=== PATIENT | female | born 1990 | race Caucasian/White ===

== ENCOUNTER 2017-10-26 21:55 | Emergency (ER) | payer OTHER ==
[2017-10-26 23:09] LABS: Absolute Lymphocytes (CBC) 4.2 K/uL (0.7-4.9); Absolute Monocytes 1.1 K/uL (0.1-1.3); Absolute Neutrophil 8.5 K/uL (1.8-8.0); Basophils % 1.1 % (0-1.3); Eosinophils % 2.1 % (0-4.4); Hematocrit 37.8 % (36.0-45.0); Lymphocytes % 29.2 % (15.3-44.8); MCH 28.3 pg (27.0-35.0); MCV 85.8 fL (80-100); Monocytes % 7.8 % (3.3-12.3)
[2017-10-26 23:12] LABS: Protime INR 0.96
[2017-10-26 23:17] LABS: Bicarbonate 25 mEq/L (21-31); Glucose Level 124 mg/dL (65-120); Potassium 3.9 mEq/L (3.6-5.0); Sodium Level 138 mEq/L (135-145)
[2017-10-26 23:23] LABS: ALT/SGPT 49 IU/L (10-60); AST/SGOT 27 IU/L (10-42); Albumin 3.3 g/dL (3.2-5.5); Alkaline Phosphatase 88 IU/L (42-121); BUN Blood Urea Nitrogen 9 mg/dL (6-20); Bilirubin Direct < 0.1 mg/dL (0-0.2); Bilirubin Total < 0.2 mg/dL (0.3-1.2); Protein, Total 6.6 g/dL (6.0-8.3)
[2017-10-26 23:25] LABS: Alcohol Serum/Plasma < 10 mg/dl; Salicylates Level < 4.0 mg/dl (<30)
[2017-10-26 23:35] LABS: Barbiturates NEGATIVE; Benzodiazepines NEGATIVE; Cocaine POSITIVE; METHAMPHETAM NEGATIVE; Opiates NEGATIVE; Phencyclidine NEGATIVE; THC Cannibis NEGATIVE
[2017-10-26 23:52] LABS: Urine Blood NEGATIVE (NEG); Urine Glucose NEGATIVE (NEG); Urine Protein NEGATIVE (NEG); Urine Specific Gravity >1.030 (1.005-1.030)
--- NOTE | 2017-10-27 01:47 | ER ---
Nurse's Notes [facility] Name: Kaylie Hernadez Age: 26 yrs Sex: Female : 1990 Arrival Date: 10/26/2017 Time: 21:58 Bed 15 Private MD: Diagnosis: Major depressive disorder, recurrent Presentation: 10/26 22:08 Presenting complaint: Patient states: she woke this morning with suicidal thoughts and aa1 thoughts of harming her boyfriend. States, "He was just making me so mad because he doesn't understand mental illness." Pt reports that she has not been able to fill her psych meds bc her medicaid wasn't covering them so she wants to go to an inpatient facility so she can get some help. Pt states that she does not have a plan on harming her boyfriend but if she harmed herself she would stab herself in the neck with a knife. States she has also been having a lot of acid reflux today. Transition of care: patient was not received from another setting of care. Onset of symptoms was October 26, 2017. Care prior to arrival: IV initiated. 20 GA, in the right antecubital area. 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 - Social history:: Smoking status: Patient uses tobacco products, smokes one pack cigarettes per day. Screenin:25 Abuse screen: Denies threats or abuse. Denies injuries from another. Nutritional aa1 screening: No deficits noted. Tuberculosis screening: No symptoms or risk factors identified. Fall Risk None identified. Assessment: 22:25 General: Appears in no apparent distress. comfortable, obese, unkempt, Behavior is aa1 calm, cooperative, appropriate for age. Pain: Complains of pain in epigastric area Pain currently is 10 out of 10 on a pain scale. Quality of pain is described as burning, Pain began this morning Is continuous. Neuro: Level of Consciousness is awake, alert, obeys commands, Oriented to person, place, time, situation, Speech is normal. Respiratory: Airway is patent Respiratory effort is even, unlabored, Respiratory pattern is regular, symmetrical. GI: Reports epigastric pain, indigestion. : No signs and/or symptoms were reported regarding the genitourinary system. EENT: No signs and/or symptoms were reported regarding the EENT system. Derm: Skin is intact, is healthy with good turgor, Skin is pink, warm \\T\\ dry. Musculoskeletal: Circulation, motion, and sensation intact. Capillary refill < 3 seconds. 23:30 Reassessment: Patient appears in no apparent distress at this time. Patient and/or aa1 family updated on plan of care and expected duration. Pain level reassessed. Patient is alert, oriented x 3, equal unlabored respirations, skin warm/dry/pink. Awaiting lab results. Requesting food and drink. 10/27 00:30 Reassessment: Patient appears in no apparent distress at this time. Patient and/or aa1 family updated on plan of care and expected duration. Pain level reassessed. Patient is alert, oriented x 3, equal unlabored respirations, skin warm/dry/pink. Awaiting psych transfer. 01:31 Reassessment: Patient appears in no apparent distress at this time. Patient and/or aa1 family updated on plan of care and expected duration. Pain level reassessed. Patient is alert, oriented x 3, equal unlabored respirations, skin warm/dry/pink. Nurse to nurse given to Lilli g[facility]. 02:02 Reassessment: Nurse to nurse given to [facility]. aa1 02:40 Reassessment: Patient appears in no apparent distress at this time. Patient and/or aa1 family updated on plan of care and expected duration. Pain level reassessed. Patient is alert, oriented x 3, equal unlabored respirations, skin warm/dry/pink. Report given to Ailin at [facility]. 02:49 Reassessment: Report given to nurse at [facility]. to contact Dr. Sheth at aa1 [phone]. 03:35 Reassessment: Patient appears in no apparent distress at this time. Patient is alert, aa1 oriented x 3, equal unlabored respirations, skin warm/dry/pink. EMS present for pt transfer to [facility]. Psych: 10/26 22:00 Subjective: Patient's mood is calm Delusions are denied, Hallucinations are denied aa1 Having thoughts of suicide. Plan for suicide is stab herself in the neck with a knife. Objective: Patient is cooperative, Speech is normal, Affect is appropriate. Interventions: Removed personal items and placed in bag. Patient placed in hospital gown. Searched person for dangerous items. Urine collected and sent for urine drug test. Belonging list filled out. Suicide Risk Assessment: Sad Person Scale: Sex of patient: Female: Score 0 points. Age of patient: Score 1 point if patient 15-34. Depression: Score 0 point if signs of depression are not present. Previous Attempt: Score 0 point if patient has not previously attempted suicide. Substance Abuse: Score 0 point if patient does not abuse alcohol or drugs. Rational Thinking: Score 0 point if patient has rational thinking. Social Support: Score 0 if social support is present/available. Organized Plan: Score 1 point if patient had a plan in place. Relationship: Score 0 point if patient has a spouse or domestic partner. Chronic Sickness: Score 0 point if patient does not have a chronic illness, debilitating, or severe disorder. TOTAL POINTS: If total points are 0-2, proposed clinical action is to send home with follow-up. Pt denies substance abuse. Commitment: Patient will be a voluntary commitment. 22:15 Safety Checks: Personal items have been removed. Door is open. No visitors are present aa1 at this time. Sitter at bedside. 22:30 Safety Checks: Personal items have been removed. Door is open. No visitors are present aa1 at this time. Sitter at bedside. 22:45 Safety Checks: Personal items have been removed. Door is open. No visitors are present aa1 at this time. Sitter at bedside. 23:00 Safety Checks: Personal items have been removed. Door is open. No visitors are present aa1 at this time. Sitter at bedside. 23:15 Safety Checks: Personal items have been removed. Door is open. No visitors are present aa1 at this time. Sitter at bedside. 23:30 Safety Checks: Personal items have been removed. Door is open. No visitors are present aa1 at this time. Sitter at bedside. 23:45 Safety Checks: Personal items have been removed. Door is open. No visitors are present aa1 at this time. Sitter at bedside. 10/27 00:00 Safety Checks: Personal items have been removed. Door is open. No visitors are present aa1 at this time. Sitter at bedside. 00:15 Safety Checks: Personal items have been removed. Door is open. No visitors are present aa1 at this time. Sitter at bedside. 00:30 Safety Checks: Personal items have been removed. Door is open. No visitors are present aa1 at this time. Sitter at bedside. 00:45 Safety Checks: Personal items have been removed. Door is open. No visitors are present aa1 at this time. Sitter at bedside. 01:00 Safety Checks: Personal items have been removed. Door is open. No visitors are present aa1 at this time. Sitter at bedside. 01:15 Safety Checks: Personal items have been removed. Door is open. No visitors are present aa1 at this time. Sitter at bedside. 01:30 Safety Checks: Personal items have been removed. Door is open. No visitors are present aa1 at this time. Sitter at bedside. 01:45 Safety Checks: Personal items have been removed. Door is open. No visitors are present aa1 at this time. Sitter at bedside. 02:00 Safety Checks: Personal items have been removed. Door is open. No visitors are present aa1 at this time. Sitter at bedside. 02:15 Safety Checks: Personal items have been removed. Door is open. No visitors are present aa1 at this time. Sitter at bedside. 02:30 Safety Checks: Personal items have been removed. Door is open. No visitors are present aa1 at this time. Sitter at bedside. 02:45 Safety Checks: Personal items have been removed. Door is open. No visitors are present aa1 at this time. Sitter at bedside. 03:00 Safety Checks: Personal items have been removed. Door is open. No visitors are present aa1 at this time. Sitter at bedside. 03:15 Safety Checks: Personal items have been removed. Door is open. No visitors are present aa1 at this time. Sitter at bedside. Vital Signs: 10/26 22:23 BP 158 / 104; Pulse 91; Resp 18; Temp 98.1; Pulse Ox 100% on R/A; Weight 127.01 kg; aa1 Height 5 ft. 7 in. (170.18 cm); Pain 10/10; 23:25 BP 108 / 63; Pulse 87; Resp 16; Pulse Ox 100% on R/A; jl8 10/27 00:42 BP 112 / 76; Pulse 84; Resp 16; Pulse Ox 99% ; jl8 02:12 BP 134 / 51; Pulse 74; Resp 16; Pulse Ox 96% ; jl8 10/26 22:23 Body Mass Index 43.85 (127.01 kg, 170.18 cm) aa1 ED Course: 10/26 21:58 Patient arrived in ED. em1 22:07 Shayy Myers RN is Primary Nurse. aa1 22:11 Triage completed. aa1 22:14 Allan Allen MD is Attending Physician. tw4 22:23 Arm band placed on right wrist. Patient placed in an exam room, on a stretcher. aa1 22:25 Patient has correct armband on for positive identification. Placed in gown. Bed in low aa1 position. Side rails up X2. Patient is placed in psych hold. 22:25 Maintain EMS IV. Dressing intact. Site clean \\T\\ dry. Gauge \\T\\ site: 20g RAC. aa 1 23:15 Safety checks: Items removed: yes. Door open/sign placed on door: yes. Family/friend jl8 present: no. 10/27 00:02 Safety checks: Items removed: yes. Door open/sign placed on door: yes. Family/friend jl8 present: no. 00:34 Safety checks: Items removed: yes. Door open/sign placed on door: yes. Family/friend jl8 present: no. 01:02 Safety checks: Items removed: yes. Door open/sign placed on door: yes. Family/friend jl8 present: no. 01:37 Safety checks: Items removed: yes. Door open/sign placed on door: yes. Family/friend jl8 present: no. 02:01 Safety checks: Items removed: yes. Door open/sign placed on door: yes. Family/friend jl8 present: no. 02:31 Safety checks: Items removed: yes. Door open/sign placed on door: yes. Family/friend jl8 present: no. 03:04 Safety checks: Items removed: yes. Door open/sign placed on door: yes. Family/friend jl8 present: no. 03:30 Safety checks: Items removed: yes. Door open/sign placed on door: yes. Family/friend jl8 present: no. 03:35 No provider procedures requiring assistance completed. IV discontinued, intact, aa1 bleeding controlled, No redness/swelling at site. Pressure dressing applied. Administered Medications: No medications were administered Outcome: 01:46 ER care complete, transfer ordered by . tw4 03:35 Transferred by ground EMS Note: [facility] aa1 03:35 Condition: good 03:35 Instructed on the need for transfer, Demonstrated understanding of instructions. 03:37 Patient left the ED. aa1 Signatures: Shayy Myers RN RN aa1 Luke Garsia em1 Aure Schwab cc Lorraine Singh vo1 Allan Allen MD MD tw4 Valerie Nichols jl8 Corrections: (The following items were deleted from the chart) 10/26 23:25 23:17 Safety checks: Items removed: yes. Door open/sign placed on door: yes. jl8 Family/friend present: no. cc 10/27 02:18 02:16 Safety checks: Items removed: vo1 vo1
--- NOTE | 2017-10-27 01:47 | EDPHYS ---
Physician Documentation [facility] Name: Kaylie Hernadez Age: 26 yrs Sex: Female : 1990 Arrival Date: 10/26/2017 Time: 21:58 Bed 15 Private MD: ED Physician Allan Allen HPI: 10/27 00:57 This 26 yrs old Female presents to ER via EMS with complaints of Suicidal tw4 Ideation. 00:57 The patient presents to the emergency department with depression, homicidal ideation, tw4 the patient has harmed or wants to harm anyone, Plan? suicide ideation, but the patient has no formulated plan. Onset: The symptoms/episode began/occurred today. Past psychiatric history: Prior diagnosis: depression. Associated signs and symptoms: The patient has no apparent associated signs or symptoms. Severity of symptoms: At their worst the symptoms were moderate in the emergency department the symptoms are unchanged. The patient has not experienced similar symptoms in the past. 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 - Social history:: Smoking status: Patient uses tobacco products, smokes one pack cigarettes per day. ROS: 10/27 00:57 Constitutional: Negative for fever, chills, and weight loss, Eyes: Negative for injury, tw4 pain, redness, and discharge, Cardiovascular: Negative for chest pain, palpitations, and edema, Respiratory: Negative for shortness of breath, cough, wheezing, and pleuritic chest pain, Abdomen/GI: Negative for abdominal pain, nausea, vomiting, diarrhea, and constipation, MS/Extremity: Negative for injury and deformity, Skin: Negative for injury, rash, and discoloration. Psych: Positive for suicide gesture, suicidal ideation. Exam: 00:57 Constitutional: This is a well developed, well nourished patient who is awake, alert, tw4 and in no acute distress. Head/Face: Normocephalic, atraumatic. Chest/axilla: Normal chest wall appearance and motion. Nontender with no deformity. No lesions are appreciated. Cardiovascular: Regular rate and rhythm with a normal S1 and S2. No gallops, murmurs, or rubs. Normal PMI, no JVD. No pulse deficits. Respiratory: Lungs have equal breath sounds bilaterally, clear to auscultation and percussion. No rales, rhonchi or wheezes noted. No increased work of breathing, no retractions or nasal flaring. Abdomen/GI: Soft, non-tender, with normal bowel sounds. No distension or tympany. No guarding or rebound. No evidence of tenderness throughout. MS/ Extremity: Pulses equal, no cyanosis. Neurovascular intact. Full, normal range of motion. Neuro: Awake and alert, GCS 15, oriented to person, place, time, and situation. Cranial nerves II-XII grossly intact. Motor strength 5/5 in all extremities. Sensory grossly intact. Cerebellar exam normal. Normal gait. 00:57 Psych: Behavior/mood is cooperative, Affect is animated, Oriented to person, place, time, Patient having thoughts of suicide. Denies suicidal plan. Patient having thoughts of homicide. Denies plan. Delusions/hallucinations are not present. Vital Signs: 10/26 22:23 BP 158 / 104; Pulse 91; Resp 18; Temp 98.1; Pulse Ox 100% on R/A; Weight 127.01 kg; aa1 Height 5 ft. 7 in. (170.18 cm); Pain 10/10; 23:25 BP 108 / 63; Pulse 87; Resp 16; Pulse Ox 100% on R/A; jl8 10/27 00:42 BP 112 / 76; Pulse 84; Resp 16; Pulse Ox 99% ; jl8 02:12 BP 134 / 51; Pulse 74; Resp 16; Pulse Ox 96% ; jl8 10/26 22:23 Body Mass Index 43.85 (127.01 kg, 170.18 cm) aa1 MDM: 10/26 22:14 Patient medically screened. tw4 10/27 00:57 Differential diagnosis: depression. Data reviewed: vital signs, nurses notes. tw4 Counseling: I had a detailed discussion with the patient and/or guardian regarding: the historical points, exam findings, and any diagnostic results supporting the discharge/admit diagnosis. ED course: pt evaluated by psych mobile assessment. Since pt has a plan will admit to observation. . 10/26 22:38 Order name: Acetaminophen 10/26 22:38 Order name: Basic Metabolic Panel 10/26 22:38 Order name: CBC with Diff 10/26 22:38 Order name: ETOH Level 10/26 22:38 Order name: Hepatic Function 10/26 22:38 Order name: PT-INR 4 10/26 22:38 Order name: Urine Test (obtain specimen); Complete Time: 23:21 4 10/26 22:38 Order name: Ptt, Activated 4 10/26 22:38 Order name: Salicylate 10/26 22:38 Order name: Urine Drug Screen 10/26 22:38 Order name: EKG; Complete Time: 22:39 4 10/26 22:38 Order name: EKG - Nurse/Tech; Complete Time: 22:52 tw4 10/26 23:24 Order name: Urine --Ancillary (enter results) 10/26 23:24 Order name: Urine Dipstick--Ancillary (enter results) 10/26 22:38 Order name: IV Saline Lock; Complete Time: 22:52 tw4 10/26 22:38 Order name: Labs collected and sent; Complete Time: 22:52 tw Administered Medications: No medications were administered Disposition: 10/27/17 01:46 Transfer ordered to [facility]. Diagnosis is Major depressive disorder, recurrent. - Reason for transfer: Higher level of care. - Accepting physician is Dr Morris. - Condition is Stable. - Problem is an ongoing problem. - Symptoms are unchanged. Signatures: Dispatcher [employer] Shayy Pruitt, RN RN aa1 Allan Allen MD MD tw4
--- NOTE | 2017-10-27 12:56 | EKG ---
Test Date: 2017-10-26 Test Time: 22:56:02 Beef Tagger: SAUNDRA MEASUREMENT RESULTS: Intervals: Rate: 76 OH: 150 QRSD: 88 QT: 400 QTc: 450 [place]: P: 44 OH: 150 QRS: 54 T: 41 INTERPRETIVE STATEMENTS: Normal sinus rhythm Normal ECG No previous ECG available for comparison Electronically Signed On 10-27-17 12:56:16 CDT by Jaciel Watson
== END 2017-10-27 03:37 ==
LOC: ER 21:55
DX: F33.9 Major depressive disorder, recurrent, unspecified (principal); F43.10 Post-traumatic stress disorder, unspecified; F17.210 Nicotine dependence, cigarettes, uncomplicated
CPT/HCPCS: 36415; 80048; 80076; 80307; 80320; 80329; 81003; 81025; 85025; 85610; 85730; 93005; 99285

== ENCOUNTER 2017-11-19 21:43 | Emergency (ER) | payer OTHER ==
[2017-11-19 22:26] LABS: Urine Blood NEGATIVE (NEG); Urine Glucose NEGATIVE (NEG); Urine Protein TRACE (NEG)
--- NOTE | 2017-11-19 23:14 | ER ---
Nurse's Notes [facility] Name: Kaylie Hernadez Age: 27 yrs Sex: Female : 1990 Arrival Date: 11/19/2017 Time: 21:56 Bed 13 Private MD: Diagnosis: Conjunctivitis;Bipolar disorder Presentation: 11/19 22:13 Presenting complaint: EMS states: Patient requesting to be transferred to psych lp1 facility for medications; Denies harm to self or others, states she has lost med prescriptions and does not have transportation, no insurance to get new prescriptions; States today felt worse because of boyfriend cheating on her , "feels manic". Transition of care: patient was not received from another setting of care. Onset of symptoms was November 19, 2017. Initial Sepsis Screen: Does the patient meet any 2 criteria? No. Patient's initial sepsis screen is negative. Does the patient have a suspected source of infection? No. Patient's initial sepsis screen is negative. Care prior to arrival: None. 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 - Social history:: Smoking status: Patient/guardian denies using tobacco. - Family history:: not pertinent. Screenin:44 Abuse screen: Denies threats or abuse. Denies injuries from another. Nutritional lp1 screening: No deficits noted. Tuberculosis screening: No symptoms or risk factors identified. Fall Risk None identified. Assessment: 22:30 General: Appears in no apparent distress. Behavior is calm, cooperative. Pain: Denies lp1 pain. Neuro: Level of Consciousness is awake, alert, obeys commands, Oriented to person, place, time, situation, Gait is steady, Pupils are PERRLA. Cardiovascular: Patient's skin is warm and dry. Respiratory: Respiratory effort is even, unlabored. GI: No signs and/or symptoms were reported involving the gastrointestinal system. : No signs and/or symptoms were reported regarding the genitourinary system. EENT: Reports drainage from left eye. Derm: Skin is pink, warm \\T\\ dry. Musculoskeletal: Circulation, motion, and sensation intact. Psych: 22:23 Subjective: Patient's mood is Within normal limits Delusions are denied, Hallucinations lp1 are denied. Objective: Patient is cooperative, Speech is normal, Affect is appropriate. Interventions: Removed personal items and placed in bag. Searched person for dangerous items. Urine collected and sent for urine drug test. Suicide Risk Assessment: Sad Person Scale: Sex of patient: Female: Score 0 points. Age of patient: Score 1 point if patient 15-34. Depression: Score 1 point if signs of depression are present. Previous Attempt: Score 1 point if patient has previously attempted suicide. Substance Abuse: Score 0 point if patient does not abuse alcohol or drugs. Rational Thinking: Score 0 point if patient has rational thinking. Social Support: Score 1 point if social support is lacking and/or unavailable. Organized Plan: Score 0 if patient did not have an organized plan in place. Relationship: Score 1 point if patient is , , , or for a single male Chronic Sickness: Score 0 point if patient does not have a chronic illness, debilitating, or severe disorder. TOTAL POINTS: If total points are 5-6, proposed clinical action is to strongly consider hospitalization, depending upon confidence in the follow-up arrangement. Implement suicide precautions. Safety Checks: Personal items have been removed. Door is open. No visitors are present at this time. Pt denies substance abuse. 23:45 Commitment: No harm to self or others. lp1 Vital Signs: 22:19 BP 108 / 85; Pulse 99; Resp 18; Temp 98.5(O); Pulse Ox 98% on R/A; Weight 131.54 kg; lp1 Height 5 ft. 7 in. (170.18 cm); Pain 0/10; 22:19 Body Mass Index 45.42 (131.54 kg, 170.18 cm) lp1 ED Course: 21:56 Patient arrived in ED. rg2 22:11 Urine collected: clean catch specimen, jayde colored. cb2 22:12 Rg Mireles MD is Attending Physician. lars 22:13 Nitza Gil, RN is Primary Nurse. lp1 22:19 Triage completed. lp1 22:23 Patient has correct armband on for positive identification. lp1 22:24 Arm band placed on left wrist. lp1 23:12 Damien Cavanaugh MD is Referral Physician. lars 23:44 No provider procedures requiring assistance completed. Patient did not have IV access lp1 during this emergency room visit. Administered Medications: No medications were administered Outcome: 23:13 Discharge ordered by . [facility] 23:45 Discharged to home ambulatory. lp1 23:45 Condition: good 23:45 Discharge instructions given to patient, Instructed on discharge instructions, follow up and referral plans. medication usage, Demonstrated understanding of instructions, follow-up care, medications, Prescriptions given X 4. 23:46 Patient left the ED. lp1 Signatures: Vamsi Mart rg2 Rg Mireles MD MD cha Pena, Laura, RN RN lp1 Zaheer Saenz cb2
--- NOTE | 2017-11-19 23:14 | EDPHYS ---
Physician Documentation [facility] Name: Kaylie Hernadez Age: 27 yrs Sex: Female : 1990 Arrival Date: 11/19/2017 Time: 21:56 Bed 13 Private MD: ED Physician Rg Mireles HPI: 11/19 23:09 This 27 yrs old Female presents to ER via EMS with complaints of medication lars refill and draining left eye. 23:09 out of meds, left eye draining. Onset: The symptoms/episode began/occurred 5 day(s) lars ago. Severity of symptoms: At their worst the symptoms were mild in the emergency department the symptoms are unchanged. The patient has not experienced similar symptoms in the past. 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 - Social history:: Smoking status: Patient/guardian denies using tobacco. - Family history:: not pertinent. ROS: 23:09 Constitutional: Negative for fever, chills, and weight loss, ENT: Negative for injury, lars pain, and discharge, Neck: Negative for injury, pain, and swelling, Cardiovascular: Negative for chest pain, palpitations, and edema, Respiratory: Negative for shortness of breath, cough, wheezing, and pleuritic chest pain, Abdomen/GI: Negative for abdominal pain, nausea, vomiting, diarrhea, and constipation, Back: Negative for injury and pain, : Negative for injury, bleeding, discharge, and swelling, MS/Extremity: Negative for injury and deformity, Skin: Negative for injury, rash, and discoloration, Neuro: Negative for headache, weakness, numbness, tingling, and seizure, Psych: Negative for depression, anxiety, suicide ideation, homicidal ideation, and hallucinations, Allergy/Immunology: Negative for hives, rash, and allergies, Endocrine: Negative for neck swelling, polydipsia, polyuria, polyphagia, and marked weight changes, Hematologic/Lymphatic: Negative for swollen nodes, abnormal bleeding, and unusual bruising. 23:09 Eyes: Positive for discharge, matting, pain, of the outer aspect of conjuctiva of left eye, iris of left eye and inner aspect of conjunctiva of left eye. Exam: 23:09 Constitutional: This is a well developed, well nourished patient who is awake, alert, lars and in no acute distress. Head/Face: Normocephalic, atraumatic. ENT: Nares patent. No nasal discharge, no septal abnormalities noted. Tympanic membranes are normal and external auditory canals are clear. Oropharynx with no redness, swelling, or masses, exudates, or evidence of obstruction, uvula midline. Mucous membranes moist. Neck: Trachea midline, no thyromegaly or masses palpated, and no cervical lymphadenopathy. Supple, full range of motion without nuchal rigidity, or vertebral point tenderness. No Meningismus. Chest/axilla: Normal chest wall appearance and motion. Nontender with no deformity. No lesions are appreciated. Cardiovascular: Regular rate and rhythm with a normal S1 and S2. No gallops, murmurs, or rubs. Normal PMI, no JVD. No pulse deficits. Respiratory: Lungs have equal breath sounds bilaterally, clear to auscultation and percussion. No rales, rhonchi or wheezes noted. No increased work of breathing, no retractions or nasal flaring. Abdomen/GI: Soft, non-tender, with normal bowel sounds. No distension or tympany. No guarding or rebound. No evidence of tenderness throughout. Back: No spinal tenderness. No costovertebral tenderness. Full range of motion. Female : Normal external genitalia. Skin: Warm, dry with normal turgor. Normal color with no rashes, no lesions, and no evidence of cellulitis. MS/ Extremity: Pulses equal, no cyanosis. Neurovascular intact. Full, normal range of motion. Neuro: Awake and alert, GCS 15, oriented to person, place, time, and situation. Cranial nerves II-XII grossly intact. Motor strength 5/5 in all extremities. Sensory grossly intact. Cerebellar exam normal. Normal gait. Psych: Awake, alert, with orientation to person, place and time. Behavior, mood, and affect are within normal limits. 23:09 Eyes: Pupils: no acute changes, equal, round, and reactive to light and accomodation, Extraocular movements: intact throughout, Conjunctiva: injected, Corneas: are normal, Sclera: no appreciated abnormality, Anterior chamber: normal, Lids and lashes: appear normal, no acute changes, no evidence of trauma, Visual regalado: are intact, Nystagmus: is not appreciated. Vital Signs: 22:19 BP 108 / 85; Pulse 99; Resp 18; Temp 98.5(O); Pulse Ox 98% on R/A; Weight 131.54 kg; lp1 Height 5 ft. 7 in. (170.18 cm); Pain 0/10; 22:19 Body Mass Index 45.42 (131.54 kg, 170.18 cm) lp1 MDM: 22:12 Patient medically screened. lars 11/19 22:12 Order name: Urine Dipstick--Ancillary (enter results) cb2 11/19 22:12 Order name: Urine --Ancillary (enter results) cb2 Administered Medications: No medications were administered Disposition: 11/19/17 23:13 Discharged to Home. Impression: Conjunctivitis, Bipolar disorder. - Condition is Stable. - Discharge Instructions: Conjunctivitis (Viral and Bacterial). - Prescriptions for Polytrim 10,000 unit- 1 mg/mL Ophthalmic drops - instill 1 drop by OPHTHALMIC route every 6 hours; 10 milliliter. Remeron 30 mg Oral tablet - take 1 tablet by ORAL route once daily; 30 tablet. Zoloft 100 mg Oral tablet - take 1 tablet by ORAL route once daily; 30 tablet. buspirone 10 mg Oral tablet - take 1 tablet by ORAL route 3 times per day; 60 tablet. - Medication Reconciliation Form, Thank You Letter, Antibiotic Education, Prescription Opioid Use form. - Follow up: Private Physician; When: 2 - 3 days; Reason: Recheck today's complaints, Continuance of care, Re-evaluation by your physician. Follow up: Damien Cavanaugh MD; When: 1 - 2 days; Reason: Recheck today's complaints, Continuance of care, Re-evaluation by your physician. - Problem is new. - Symptoms have improved. Signatures: Dispatcher [employer] Rg Shook MD MD cha Pena, Laura, RN RN lp1 Corrections: (The following items were deleted from the chart) 23:46 23:13 11/19/2017 23:13 Discharged to Home. Impression: Conjunctivitis; Bipolar lp1 disorder. Condition is Stable. Forms are Medication Reconciliation Form, Thank You Letter, Antibiotic Education, Prescription Opioid Use. Follow up: Private Physician; When: 2 - 3 days; Reason: Recheck today's complaints, Continuance of care, Re-evaluation by your physician. Follow up: Damien Cavanaugh; When: 1 - 2 days; Reason: Recheck today's complaints, Continuance of care, Re-evaluation by your physician. Problem is new. Symptoms have improved. lars
== END 2017-11-19 23:46 | disposition home or self-care (01) ==
LOC: ER 21:43
DX: H10.9 Unspecified conjunctivitis (principal); F31.9 Bipolar disorder, unspecified; F41.8 Other specified anxiety disorders; Z76.0 Encounter for issue of repeat prescription
CPT/HCPCS: 81003; 81025; 99284

== ENCOUNTER 2017-11-27 20:47 | Emergency (ER) | payer OTHER ==
[2017-11-27 22:07] LABS: Absolute Neutrophil 9.1 K/uL (1.8-8.0); Basophils % 0.7 % (0-1.3); Eosinophils % 1.7 % (0-4.4); Hematocrit 39.1 % (36.0-45.0); Lymphocytes % 27.7 % (15.3-44.8); MCH 28.9 pg (27.0-35.0); MCV 85.6 fL (80-100); MPV 9.4 fL (7.6-11.3); Monocytes % 7.1 % (3.3-12.3); RBC Red Blood Cell Count 4.57 M/uL (3.86-4.86)
[2017-11-27 22:14] LABS: Protime INR 1.01
[2017-11-27 22:16] LABS: Barbiturates NEGATIVE; Benzodiazepines NEGATIVE; Cocaine POSITIVE; METHAMPHETAM NEGATIVE; Opiates NEGATIVE; Phencyclidine NEGATIVE; THC Cannibis NEGATIVE
[2017-11-27 22:17] LABS: Bicarbonate 27 mEq/L (21-31); Glucose Level 112 mg/dL (65-120); Potassium 3.7 mEq/L (3.6-5.0); Sodium Level 141 mEq/L (135-145)
[2017-11-27 22:23] LABS: ALT/SGPT 59 IU/L (10-60); AST/SGOT 30 IU/L (10-42); Albumin 3.7 g/dL (3.2-5.5); Alcohol Serum/Plasma < 10 mg/dl; Alkaline Phosphatase 86 IU/L (42-121); BUN Blood Urea Nitrogen 11 mg/dL (6-20); Bilirubin Direct < 0.1 mg/dL (0-0.2); Bilirubin Total 0.4 mg/dL (0.3-1.2); Protein, Total 7.4 g/dL (6.0-8.3); Salicylates Level < 4.0 mg/dl (<30)
[2017-11-27 22:32] LABS: Urine Blood NEGATIVE (NEG); Urine Glucose NEGATIVE (NEG); Urine Protein NEGATIVE (NEG); Urine Specific Gravity >1.030 (1.005-1.030); Urine pH 5.5 (5.0-7.0)
[2017-11-28] MEDS ORDERED: MIRTAZAPINE 15 MG TAB ONE (02:27)
--- NOTE | 2017-11-28 02:29 | ER ---
Nurse's Notes [facility] Name: Kaylie Hernadez Age: 27 yrs Sex: Female : 1990 Arrival Date: 11/27/2017 Time: 20:53 Bed 17 Private MD: Diagnosis: Suicidal ideations;Bipolar disorder;Cocaine abuse Presentation: 11/27 21:10 Presenting complaint: Patient states: "I am homicidal and suicidal, but mostly aj suicidal. I want to cut myself with a razor blade.". Transition of care: patient was not received from another setting of care. Onset of symptoms was November 27, 2017. Initial Sepsis Screen: Does the patient meet any 2 criteria? No. Patient's initial sepsis screen is negative. Does the patient have a suspected source of infection? No. Patient's initial sepsis screen is negative. Care prior to arrival: None. 21:10 Method Of Arrival: EMS: [facility] 21:10 Acuity: JANETTE 2 aj Triage Assessment: 21:11 General: Appears in no apparent distress. comfortable, Behavior is calm, cooperative, aj appropriate for age. Pain: Denies pain. Neuro: Level of Consciousness is awake, alert, obeys commands, Oriented to person, place, time, situation, Appropriate for age. Respiratory: Airway is patent Trachea midline Respiratory effort is even, unlabored, Respiratory pattern is regular, symmetrical. Derm: Skin is intact, is healthy with good turgor, Skin is pink, warm \\T\\ dry. normal. 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 - Social history:: Smoking status: Patient uses tobacco products, smokes one pack cigarettes per day. Screenin:14 Abuse screen: Denies threats or abuse. Nutritional screening: No deficits noted. jd3 Tuberculosis screening: No symptoms or risk factors identified. 23:17 Fall Risk IV access (20 points). Mental Status- Oriented to own ability (0 pts). Total jd3 Leong Fall Scale indicates No Risk (0-24 pts). Assessment: 23:16 General: Appears in no apparent distress. Behavior is cooperative, appropriate for age. jd3 Pain: Denies pain. Neuro: Level of Consciousness is awake, alert, obeys commands. Cardiovascular: Capillary refill < 3 seconds Patient's skin is warm and dry. Rhythm is regular. Respiratory: Airway is patent Respiratory effort is even, unlabored, Respiratory pattern is regular, symmetrical. GI: Abdomen is round obese, Patient currently denies nausea, vomiting. : No signs and/or symptoms were reported regarding the genitourinary system. EENT: No signs and/or symptoms were reported regarding the EENT system. Derm: Skin is intact, Skin is dry, Skin is normal, Skin temperature is warm. Musculoskeletal: Circulation, motion, and sensation intact. Range of motion: intact in all extremities. 11/28 00:00 Reassessment: Patient appears in no apparent distress at this time. Patient and/or jd3 family updated on plan of care and expected duration. Pain level reassessed. Patient is alert, oriented x 3, equal unlabored respirations, skin warm/dry/pink. pt resting with eyes closed even and unlabored respirations, no distress noted at this time. 00:34 Reassessment: pt reported IV hurting, IV flushed well, but pt continue to report pain. jd3 new IV started by [email or web address]. 01:30 Reassessment: Patient appears in no apparent distress at this time. Patient and/or jd3 family updated on plan of care and expected duration. Pain level reassessed. Patient is alert, oriented x 3, equal unlabored respirations, skin warm/dry/pink. [facility] at bedside. 02:30 Reassessment: Patient appears in no apparent distress at this time. Patient and/or jd3 family updated on plan of care and expected duration. Pain level reassessed. Patient is alert, oriented x 3, equal unlabored respirations, skin warm/dry/pink. pt resting in bed, with eyes closed, even and unlabored respirations, no distress noted at this time. 03:30 Reassessment: Patient appears in no apparent distress at this time. No changes from jd3 previously documented assessment. Patient and/or family updated on plan of care and expected duration. Pain level reassessed. Patient is alert, oriented x 3, equal unlabored respirations, skin warm/dry/pink. 04:30 Reassessment: Patient appears in no apparent distress at this time. No changes from jd3 previously documented assessment. Patient and/or family updated on plan of care and expected duration. Pain level reassessed. Patient is alert, oriented x 3, equal unlabored respirations, skin warm/dry/pink. 05:30 Reassessment: Patient appears in no apparent distress at this time. No changes from jd3 previously documented assessment. Patient and/or family updated on plan of care and expected duration. Pain level reassessed. Patient is alert, oriented x 3, equal unlabored respirations, skin warm/dry/pink. 06:30 Reassessment: Patient appears in no apparent distress at this time. No changes from jd3 previously documented assessment. Patient and/or family updated on plan of care and expected duration. Pain level reassessed. Patient is alert, oriented x 3, equal unlabored respirations, skin warm/dry/pink. 07:21 General: Appears in no apparent distress. Behavior is calm, cooperative. Pain: Denies em pain. Neuro: Level of Consciousness is awake, alert, obeys commands, Oriented to person, place, time, situation. Cardiovascular: Capillary refill < 3 seconds Patient's skin is warm and dry. Respiratory: Airway is patent Respiratory effort is even, unlabored, Respiratory pattern is regular, symmetrical. GI: Abdomen is round non-distended. : No signs and/or symptoms were reported regarding the genitourinary system. EENT: No signs and/or symptoms were reported regarding the EENT system. Derm: Skin is intact, Skin is pink, warm \\T\\ dry. Musculoskeletal: Range of motion: intact in all extremities. 07:27 Reassessment: Patient appears in no apparent distress at this time. I agree with the iw above assessment by Jai Barton LVN. 08:30 Reassessment: Patient appears in no apparent distress at this time. Patient and/or em family updated on plan of care and expected duration. Pain level reassessed. pt request breakfast, notified kitchen, pt offered donuts and orange juice. 09:20 Reassessment: Patient appears in no apparent distress at this time. Patient and/or em family updated on plan of care and expected duration. Pain level reassessed. Patient is alert, oriented x 3, equal unlabored respirations, skin warm/dry/pink. pt up eating breakfast at bedside. 09:48 Reassessment: Patient appears in no apparent distress at this time. report given to jeri Rocha RN at [facility], pt signed transfer form, awaiting EMS transport to facility. 10:56 Reassessment: Patient appears in no apparent distress at this time. report given to em [facility]. Psych: 11/27 21:12 Subjective: Hallucinations are auditory, Having thoughts of Homicidal and suicidal. aj Patient reports wanting to hurt her boyfriend with a kitchen knife and hurt herself with a razor blade. 23:00 Safety Checks: Personal items have been removed. Door is open. No visitors are present jd3 at this time. 23:00 Interventions: Removed personal items and placed in bag. Patient placed in hospital jd3 gown. Searched person for dangerous items. Urine collected and sent for urine drug test. 23:15 Suicide Risk Assessment: Sad Person Scale: Sex of patient: Female: Score 0 points. Age jd3 of patient: Score 1 point if patient 15-34. Depression: Score 1 point if signs of depression are present. Previous Attempt: Score 1 point if patient has previously attempted suicide. Substance Abuse: Score 0 point if patient does not abuse alcohol or drugs. Rational Thinking: Score 0 point if patient has rational thinking. Social Support: Score 1 point if social support is lacking and/or unavailable. Organized Plan: Score 1 point if patient had a plan in place. Relationship: Score 0 point if patient has a spouse or domestic partner. Chronic Sickness: Score 0 point if patient does not have a chronic illness, debilitating, or severe disorder. TOTAL POINTS: If total points are 5-6, proposed clinical action is to strongly consider hospitalization, depending upon confidence in the follow-up arrangement. Implement suicide precautions. 23:15 Safety Checks: Personal items have been removed. Door is open. No visitors are present jd3 at this time. 23:17 Objective: Patient is cooperative, Speech is normal, Affect is appropriate. jd3 23:18 Pt denies substance abuse. jd3 Vital Signs: 21:11 BP 149 / 95; Pulse 94; Resp 18; Temp 99.1; Pulse Ox 99% on R/A; Weight 127.01 kg; aj Height 5 ft. 7 in. (170.18 cm); Pain 0/10; 11/28 07:19 BP 138 / 90; Pulse 89; Resp 17; Temp 98.6(O); Pulse Ox 99% on R/A; mh5 10:42 BP 135 / 76; Pulse 73; Resp 18; Temp 98.0(O); Pulse Ox 97% on R/A; mh5 05 21:11 Body Mass Index 43.85 (127.01 kg, 170.18 cm) aj ED Course: 11/27 20:53 Patient arrived in ED. ds1 21:02 Patient's name was called from ER lobby. No response. Unable to locate patient. Will aj disposition as left without being seen by a provider. 21:10 Triage completed. aj 21:11 Arm band placed on right wrist. Patient placed in an exam room. aj 21:15 Luigi Young MD is Attending Physician. rn 21:21 Rg Moyer PA is PHCP. cp 21:41 Daniel Gamble, KELLI is Primary Nurse. mb3 21:45 Safety checks: Items removed: yes. Door open/sign placed on door: yes. Family/friend cc present: no. 21:45 Initial lab(s) drawn, by nh, sent to lab. Urine collected: clean catch specimen. cc Inserted saline lock: 20 gauge in left forearm, using aseptic technique. Blood collected. 21:50 EKG done, by ED staff, reviewed by Rg MARADIAGA. cc 22:00 Safety checks: Items removed: yes. Door open/sign placed on door: yes. Family/friend cc present: no. 22:15 Safety checks: Items removed: yes. Door open/sign placed on door: yes. Family/friend oe present: no. 22:30 Safety checks: Items removed: yes. Door open/sign placed on door: yes. Family/friend oe present: no. 22:45 Safety checks: Items removed: yes. Door open/sign placed on door: yes. Family/friend oe present: no. 23:00 Safety checks: Items removed: yes. Door open/sign placed on door: yes. Family/friend cc present: no. 23:14 Primary Nurse role handed off by Daniel Gamble RN jd3 23:14 Chan Saha RN is Primary Nurse. jd3 23:14 Patient has correct armband on for positive identification. Placed in gown. Bed in low jd3 position. Call light in reach. Side rails up X2. 23:15 Safety checks: Items removed: yes. Door open/sign placed on door: yes. Family/friend oe present: no. 23:24 Warm blanket given. Diet: Patient given snack. Patient given juice. oe 23:30 Safety checks: Items removed: yes. Door open/sign placed on door: yes. Family/friend oe present: no. 23:45 Safety checks: Items removed: yes. Door open/sign placed on door: yes. Family/friend oe present: no. 11/28 00:00 Safety checks: Items removed: yes. Door open/sign placed on door: yes. Family/friend oe present: no. 00:30 Safety checks: Items removed: yes. Door open/sign placed on door: yes. Family/friend oe present: no. Pillow given. Diet: Patient given snack. Patient given juice. 00:35 Inserted saline lock: 22 gauge in right antecubital area, using aseptic technique. jd3 placed by [facility] [employer]. 00:45 Safety checks: Items removed: yes. Door open/sign placed on door: yes. Family/friend oe present: no. 01:00 Safety checks: Items removed: yes. Door open/sign placed on door: yes. Family/friend oe present: no. 01:15 Safety checks: Items removed: yes. Door open/sign placed on door: yes. Family/friend oe present: no. 01:30 Safety checks: Items removed: yes. Door open/sign placed on door: yes. Family/friend oe present: no. 01:45 Safety checks: Items removed: yes. Door open/sign placed on door: yes. Family/friend oe present: no. 02:00 Safety checks: Items removed: yes. Door open/sign placed on door: yes. Family/friend oe present: no. 02:15 Safety checks: Items removed: yes. Door open/sign placed on door: yes. Family/friend oe present: no. 02:30 Safety checks: Items removed: yes. Door open/sign placed on door: yes. Family/friend oe present: no. 02:45 Safety checks: Items removed: yes. Door open/sign placed on door: yes. Family/friend oe present: no. 03:00 Safety checks: Items removed: yes. Door open/sign placed on door: yes. Family/friend oe present: no. 03:15 Safety checks: Items removed: yes. Door open/sign placed on door: yes. Family/friend oe present: no. 03:30 Safety checks: Items removed: yes. Door open/sign placed on door: yes. Family/friend oe present: no. 03:45 Safety checks: Items removed: yes. Door open/sign placed on door: yes. Family/friend oe present: no. 04:00 Safety checks: Items removed: yes. Door open/sign placed on door: yes. Family/friend oe present: no. 04:15 Safety checks: Items removed: yes. Door open/sign placed on door: yes. Family/friend oe present: no. 04:30 Safety checks: Items removed: yes. Door open/sign placed on door: yes. Family/friend oe present: no. 04:45 Safety checks: Items removed: yes. Door open/sign placed on door: yes. Family/friend oe present: no. 05:00 Safety checks: Items removed: yes. Door open/sign placed on door: yes. Family/friend oe present: no. 05:15 Safety checks: Items removed: yes. Door open/sign placed on door: yes. Family/friend oe present: no. 05:30 Safety checks: Items removed: yes. Door open/sign placed on door: yes. Family/friend oe present: no. 05:45 Safety checks: Items removed: yes. Door open/sign placed on door: yes. Family/friend oe present: no. 06:00 Safety checks: Items removed: yes. Door open/sign placed on door: yes. Family/friend oe present: no. 06:15 Safety checks: Items removed: yes. Door open/sign placed on door: yes. Family/friend oe present: no. 06:30 Safety checks: Items removed: yes. Door open/sign placed on door: yes. Family/friend oe present: no. 06:45 Safety checks: Items removed: yes. Door open/sign placed on door: yes. Family/friend oe present: no. 07:00 Safety checks: Items removed: yes. Door open/sign placed on door: yes. Family/friend oe present: no. 07:15 Safety checks: Items removed: yes. Door open/sign placed on door: yes. Family/friend mh5 present: no. 07:30 Safety checks: Items removed: yes. Door open/sign placed on door: yes. Family/friend mh5 present: no. 07:32 Attending Physician role handed off by Luigi Young MD [facility] 07:32 Rg Mireles MD is Attending Physician. [facility] 07:45 Safety checks: Items removed: yes. Door open/sign placed on door: yes. Family/friend mh5 present: no. 07:48 Lab(s) recollected, by me, sent to lab. 5 08:00 Safety checks: Items removed: yes. Door open/sign placed on door: yes. Family/friend mh5 present: no. 08:15 Safety checks: Items removed: yes. Door open/sign placed on door: yes. Family/friend mh5 present: no. 08:30 Safety checks: Items removed: yes. Door open/sign placed on door: yes. Family/friend mh5 present: no. 08:45 Safety checks: Items removed: yes. Door open/sign placed on door: yes. Family/friend mh5 present: no. 09:00 Safety checks: Items removed: yes. Door open/sign placed on door: yes. Family/friend mh5 present: no. 09:11 Patients demographics and clinicals sent and faxed to all [facility] facilities. 09:15 Safety checks: Items removed: yes. Door open/sign placed on door: yes. Family/friend mh5 present: no. 09:30 Safety checks: Items removed: yes. Door open/sign placed on door: yes. Family/friend mh5 present: no. 09:45 Safety checks: Items removed: yes. Door open/sign placed on door: yes. Family/friend mh5 present: no. 10:00 Safety checks: Items removed: yes. Door open/sign placed on door: yes. Family/friend mh5 present: no. 10:15 Safety checks: Items removed: yes. Door open/sign placed on door: yes. Family/friend mh5 present: no. 10:30 Safety checks: Items removed: yes. Door open/sign placed on door: yes. Family/friend mh5 present: no. 10:45 Safety checks: Items removed: yes. Door open/sign placed on door: yes. Family/friend mh5 present: no. 10:46 No provider procedures requiring assistance completed. IV discontinued, intact, em bleeding controlled, No redness/swelling at site. Pressure dressing applied. Administered Medications: 02:32 Drug: Remeron 30 mg Route: PO; jd3 06:53 Follow up: Response: No adverse reaction jd3 Outcome: 02:29 ER care complete, transfer ordered by MD. cp 10:46 Transferred by ground EMS to other acute care facility, Transfer form completed. em 10:46 Condition: good 10:46 Instructed on the need for transfer, Demonstrated understanding of instructions. 11:01 Patient left the ED. em Signatures: Domi Terry RN RN aj Anderson, Corey, MD MD cha Munoz, Edgar, TRAINING DEVELOPMENT DIRECTOR TRAINING DEVELOPMENT DIRECTOR em Maryanne Bustamante ds1 Noemí Henriquez RN RN iw Nieto, Roman, MD MD rn Christian, Chelsea cc Kieran, Rg Fuentes, Roberto Yanes cp, Maria Chan Cain RN RN jDaniel Carbone RN RN mb3 Corrections: (The following items were deleted from the chart) 11/27 22:12 22:11 Safety checks: Items removed: yes. Door open/sign placed on door: yes. cc Family/friend present: no. cc 23:27 23:15 Safety checks: Items removed: yes. Door open/sign placed on door: yes. oe Family/friend present: no. oe 11/28 01:03 00:40 Safety checks: Items removed: yes. Door open/sign placed on door: yes. oe Family/friend present: no. oe 02:15 01:41 Safety checks: Items removed: yes. Door open/sign placed on door: yes. oe Family/friend present: no. oe 03:06 03:06 Safety checks: Items removed: yes. Door open/sign placed on door: yes. oe Family/friend present: no. oe 06:20 05:48 Safety checks: Items removed: yes. Door open/sign placed on door: yes. oe Family/friend present: no. oe 06:20 05:48 Safety checks: Items removed: yes. Door open/sign placed on door: yes. oe Family/friend present: no. oe 06:46 05:48 Safety checks: Items removed: yes. Door open/sign placed on door: yes. oe Family/friend present: no. oe 06:46 05:49 Safety checks: Items removed: yes. Door open/sign placed on door: yes. oe Family/friend present: no. oe
--- NOTE | 2017-11-28 02:29 | EDPHYS ---
Physician Documentation [facility] Name: Kaylie Hernadez Age: 27 yrs Sex: Female : 1990 Arrival Date: 11/27/2017 Time: 20:53 Bed 17 Private MD: ED Physician Rg Mireles HPI: 11/27 21:19 This 27 yrs old Female presents to ER via EMS with complaints of Psych cp Problem. 21:19 The patient presents to the emergency department with psychosis, has experienced cp auditory hallucinations, voices are telling patient to commit sucide, suicide ideation, and the patient has a plan, to cut oneself and bleed. Onset: The symptoms/episode began/occurred gradually. Past psychiatric history: Prior diagnosis: bipolar disorder, depression, Psychiatric medications include: Remeron, Zoloft, Depakote. Associated signs and symptoms: Pertinent negatives: abdominal pain, chest pain, fever, headache, paranoia, substance abuse. Severity of symptoms: in the emergency department the symptoms are unchanged despite home interventions. [employer]: 21:11 LMP N/A - Irregular menses aj Historical: - Allergies: 21:11 No Known Allergies; aj - Home Meds: 21:11 Adderall XR 20 mg Oral cp24 1 cap once daily [Active]; BuSpar Oral 10 mg three times a aj day [Active]; Depakote 500 mg Oral TbEC 3 tabs once daily [Active]; Remeron 30 mg Oral tab 1 tab nightly [Active]; Zoloft 100 mg Oral tab 1 tab once daily [Active]; - PMHx: 21:11 ADD/ADHD; Bipolar disorder; Depression; Anxiety; PTSD; aj - PSHx: 21:11 Cholecystectomy; aj - Immunization history:: Adult Immunizations up to date. - Social history:: Smoking status: Patient uses tobacco products, smokes one pack cigarettes per day. ROS: 21:21 Eyes: Negative for injury, pain, redness, and discharge. cp 21:21 Constitutional: Negative for body aches, chills, fever, poor PO intake. 21:21 ENT: Negative for drainage from ear(s), ear pain, sore throat, difficulty swallowing, difficulty handling secretions. 21:21 Cardiovascular: Negative for chest pain, edema, palpitations. 21:21 Respiratory: Negative for cough, shortness of breath, wheezing. 21:21 Abdomen/GI: Negative for abdominal pain, nausea, vomiting, and diarrhea, black/tarry stool, rectal bleeding. 21:21 Skin: Negative for cellulitis, rash. 21:21 Neuro: Negative for altered mental status, headache, seizure activity, syncope, near syncope, weakness. 21:21 Psych: Positive for depression, auditory hallucinations, suicidal ideation. 21:21 All other systems are negative. Exam: 21:25 Constitutional: The patient appears in no acute distress, alert, awake, non-toxic, well cp developed, well nourished, obese. 21:25 Head/Face: Normocephalic, atraumatic. cp 21:25 Eyes: Periorbital structures: appear normal, Pupils: equal, round, and reactive to light and accomodation, Extraocular movements: intact throughout, Conjunctiva: normal, no exudate, no injection, Sclera: no appreciated abnormality, Lids and lashes: appear normal, bilaterally. 21:25 ENT: External ear(s): are unremarkable, Nose: is normal, Mouth: is normal, Posterior pharynx: is normal, airway is patent, no erythema, no exudate. 21:25 Neck: ROM/movement: is normal, is supple, without pain, no range of motions limitations, no nuchal rigidity. 21:25 Chest/axilla: Inspection: normal, Palpation: is normal, no crepitus, no tenderness. 21:25 Cardiovascular: Rate: normal, Rhythm: regular. 21:25 Respiratory: the patient does not display signs of respiratory distress, Respirations: normal, no use of accessory muscles, no retractions, no splinting, no tachypnea, labored breathing, is not present, Breath sounds: are clear throughout, no decreased breath sounds, no stridor, no wheezing. 21:25 Abdomen/GI: Inspection: obese Bowel sounds: active, all quadrants, Palpation: abdomen is soft and non-tender, in all quadrants, rebound tenderness, is not appreciated, voluntary guarding, is not appreciated, involuntary guarding, is not appreciated. 21:25 Skin: cellulitis, is not appreciated, no rash present. 21:25 Neuro: Orientation: to person, place \T\ time. Mentation: lucid, able to follow commands, Cerebellar function: is grossly normal, Motor: moves all fours, strength is normal, Sensation: no obvious gross deficits. 21:25 Psych: Behavior/mood is pleasant, cooperative, Affect is calm, Patient having thoughts of suicide. Plan for suicide is cut herself 22:00 ECG was reviewed by the Attending Physician. Vital Signs: 21:11 BP 149 / 95; Pulse 94; Resp 18; Temp 99.1; Pulse Ox 99% on R/A; Weight 127.01 kg; aj Height 5 ft. 7 in. (170.18 cm); Pain 0/10; 05 07:19 BP 138 / 90; Pulse 89; Resp 17; Temp 98.6(O); Pulse Ox 99% on R/A; mh5 10:42 BP 135 / 76; Pulse 73; Resp 18; Temp 98.0(O); Pulse Ox 97% on R/A; mh5 11/27 21:11 Body Mass Index 43.85 (127.01 kg, 170.18 cm) aj MDM: 11/27 21:15 Patient medically screened. rn 22:00 Differential diagnosis: drug withdrawal. acute psychotic break, depression, psychosis cp secondary to non-compliance. 23:30 Data reviewed: vital signs, nurses notes, lab test result(s). 23:30 Test interpretation: by ED physician or midlevel provider: ECG. 11/27 21:15 Order name: Acetaminophen; Complete Time: 23:21 rn 11/27 23:21 Interpretation: Reviewed. 11/27 21:15 Order name: Basic Metabolic Panel; Complete Time: 23:21 rn 11/27 21:15 Order name: CBC with Diff; Complete Time: 23:21 11/27 23:21 Interpretation: Normal except: WBC 14.4; RDW 15.4; NEUT A 9.1. 11/27 21:15 Order name: ETOH Level; Complete Time: 23:21 rn 11/27 21:15 Order name: Hepatic Function; Complete Time: 23:21 rn 11/27 23:22 Interpretation: Normal except: GLOB 3.7; A/G 1.0. 11/27 21:15 Order name: PT-INR; Complete Time: 23:21 rn 11/27 21:15 Order name: Ptt, Activated; Complete Time: 23:21 rn 11/27 21:15 Order name: Salicylate; Complete Time: 23:21 rn 11/27 21:15 Order name: Urine Drug Screen; Complete Time: 23:21 rn 11/27 23:21 Interpretation: Normal except: HINA POSITIVE. cp 11/27 21:15 Order name: EKG; Complete Time: 21:16 rn 11/27 22:10 Order name: Urine Dipstick--Ancillary (enter results); Complete Time: 23:21 [facility] 11/27 22:10 Order name: Urine --Ancillary (enter results); Complete Time: 23:21 [facility] 11/27 23:23 Interpretation: Reviewed. cp 11/28 07:32 Order name: CBC w/o diff lars 11/27 21:15 Order name: Urine Test (obtain specimen); Complete Time: 22:08 rn 11/27 21:15 Order name: EKG - Nurse/Tech; Complete Time: 22:08 rn 11/27 21:15 Order name: IV Saline Lock; Complete Time: 22:08 rn 11/27 21:15 Order name: Labs collected and sent; Complete Time: 22:08 rn 11/27 21:15 Order name: Urine Dipstick-Ancillary (obtain specimen); Complete Time: 22:08 11/28 06:53 Order name: Diet Regular; Complete Time: 06:53 jd3 EC:00 Rate is 75 beats/min. Rhythm is regular. [place] interval is normal. QRS interval is normal. cp QT interval is normal. No ST changes noted. Interpreted by me. Reviewed by me. Administered Medications: 11/28 02:32 Drug: Remeron 30 mg Route: PO; jd3 06:53 Follow up: Response: No adverse reaction jd3 Disposition: 11:01 Co-signature as Attending Physician, Rg Mireles MD I agree with the assessment and [facility] plan of care. Disposition: 11/28/17 02:29 Transfer ordered to Psych Facility. Diagnosis are Suicidal ideations, Bipolar disorder, Cocaine abuse. - Reason for transfer: Higher level of care. - Accepting physician is psych facility. - Condition is Stable. - Problem is an ongoing problem. - Symptoms are unchanged. Signatures: Dispatcher [employer] Domi Eduardo RN RN aj Anderson, Corey, MD MD cha Munoz, Edgar, ARCHEOLOGY PROFESSOR ARCHEOLOGY PROFESSOR Luigi Norris MD MD rn Page, Corey, PA PA Chan Brown RN RN jd3 Corrections: (The following items were deleted from the chart) 07:34 02:29 11/28/2017 02:29 Transfer ordered to Psych Facility. Diagnosis is Suicidal lars ideations. Reason for transfer: Higher level of care. Accepting physician is psych facility. Condition is Stable. Problem is an ongoing problem. Symptoms are unchanged. cp 11:01 07:34 11/28/2017 02:29 Transfer ordered to Psych Facility. Diagnosis is Suicidal em ideations; Bipolar disorder; Cocaine abuse. Reason for transfer: Higher level of care. Accepting physician is psych facility. Condition is Stable. Problem is an ongoing problem. Symptoms are unchanged. lars
[2017-11-28 08:12] LABS: Hematocrit 38.4 % (36.0-45.0); MCH 28.5 pg (27.0-35.0); MCV 86.2 fL (80-100); MPV 9.6 fL (7.6-11.3); RBC Red Blood Cell Count 4.45 M/uL (3.86-4.86)
--- NOTE | 2017-11-28 10:28 | EKG ---
Test Date: 2017-11-27 Test Time: 21:49:06 [employer] [place] [place]: KM MEASUREMENT RESULTS: Intervals: Rate: 75 MD: 156 QRSD: 90 QT: 414 QTc: 462 [place]: P: 41 MD: 156 QRS: 33 T: 23 INTERPRETIVE STATEMENTS: Normal sinus rhythm Normal ECG Compared to ECG 10/26/2017 22:56:02 No significant changes Electronically Signed On 11-28-17 10:27:11 CDT by Wilfrido Hartley
== END 2017-11-28 11:01 ==
LOC: ER 20:47
DX: F14.10 Cocaine abuse, uncomplicated (principal); F31.9 Bipolar disorder, unspecified; F43.10 Post-traumatic stress disorder, unspecified; F17.210 Nicotine dependence, cigarettes, uncomplicated
CPT/HCPCS: 36415; 80048; 80076; 80307; 80320; 80329; 81003; 81025; 85025; 85027; 85610; 85730; 93005; 99285